=== PATIENT | female | born 1980 | race Caucasian/White ===

== ENCOUNTER 2018-07-10 10:55 | Day surgery (SDC) | payer BC, OTHER ==
[~2018-07-10] VITALS: Ht 160 cm; Wt 74.8 kg
[2018-07-10] VITALS (11 sets, daily range): BP systolic 102–119; BP diastolic 58–75; PULSE 70–92; RESP 15–23; Ht 160 cm; Wt 74.8 kg
[~2018-07-10 10:55] MED LIST: LIDOCAINE 2% (SDV) 5 ML INJ ONE
--- NOTE | 2018-07-10 13:17 | PREAC ---
Date/Time of Note Date/Time of Note DATE: 07/10/18 TIME: 13:15 Anesthesia Eval and Record Evaluation Time Pre-Procedure Interview DATE: 07/10/18 TIME: 13:15 Age 38 Sex female NPO: 8 hrs Preoperative diagnosis scalp mass times 4 Planned procedure excision of scalp mass x 4 Past Medical History Past Medical History: None Surgery & Anesthesia Issues No known issue Meds Anticoagulation: No Beta Kin within 24 hr: No Reason Beta Kin not given: Pt. not on B-Kin No Active Prescriptions or Reported Meds Meds reviewed: Yes Allergies Coded Allergies: No Known Allergy (Unverified , 07/10/18) Allergies Reviewed: Yes Labs/Studies Labs Reviewed: Reviewed by anesthesiologist test: Negative Pre-procedure Exam Last vitals Vital Signs Date Temp Pulse Resp B/P (MAP) Pulse Ox O2 O2 Flow FiO2 Time Delivery Rate 07/10/18 98.6 77 16 113/71 99 Room Air 11:07 (85) Airway: Adequate mouth opening, Adequate thyromental dist Mallampati: Mallampati I Teeth: Normal Lung: Normal Heart: Normal ASA Physical Status ASA physical status: 1 Emergency: None Planned Anesthetic General/MAC: MAC Planned Pain Management Parenteral pain med Pre-operative Attestations Prior to commencing anesthesia and surgery, the patient was re-evaluated, there was verification of: *The patient's identity *The results of appropriate recent lab work and preoperative vital signs *The above evaluation not changing prior to induction *Anesthetic plan, risk benefits, alternative and complications discussed with patient/family; questions answered; patient/family understands, accepts and wishes to proceed. AINSLEY YBARRA Jul 10, 2018 13:17
--- NOTE | 2018-07-10 13:28 | HPN ---
Date/Time of Note Date/Time of Note DATE: 07/10/18 TIME: 13:28 Interval H&P Admission Note Pt. seen H&P reviewed: No system changes ANDREW BENJAMIN Jul 10, 2018 13:28
[2018-07-10] MEDS ORDERED: PROPOFOL 100 ML ONE (13:33)
[2018-07-10] MEDS ORDERED: FENTAnyl 50 MCG/ML VIAL ONE (13:36)
[2018-07-10] MEDS ORDERED: CEFAZOLIN 1 GM INJ ONE (13:48)
[2018-07-10] MEDS ORDERED: BUPIVACAINE 0.25%/EPI (SDV) 30 ML INJ ONE (14:02)
[2018-07-10] MEDS ORDERED: LIDOCAINE 1% (MPF) 30 ML INJ ONE (14:03)
[2018-07-10] MEDS ORDERED: POVIDONE IODINE 10% 28.4 GM OINT ONE (14:07)
--- NOTE | 2018-07-10 14:35 | PAC ---
Date/Time of Note Date/Time of Note DATE: 07/10/18 TIME: 14:35 Post-Anesthesia Notes Post-Anesthesia Note Last documented vital signs Vital Signs Date Temp Pulse Resp B/P (MAP) Pulse Ox O2 O2 Flow FiO2 Time Delivery Rate 07/10/18 98.6 77 16 113/71 99 Room Air 1435 (85) Activity: WNL Respiratory function: WNL Cardiovascular function: WNL Mental status: Baseline Pain reasonably controlled: Yes Hydration appropriate: Yes Nausea/Vomiting absent: Yes AINSLEY YBARRA Jul 10, 2018 14:35
--- NOTE | 2018-07-10 14:45 | OPR ---
Date/Time of Note Date/Time of Note DATE: 07/10/18 TIME: 14:37 Operative Report Procedure Date: Jul 10, 2018 Preoperative Diagnosis Sebaceous cysts of the scalp x4 Postoperative Diagnosis Same Operation/Procedure Performed Excision of sebaceous cyst of the scalp 1.5 cm right parietal Excision of sebaceous cyst of the scalp 1 cm right temporal region Excision of sebaceous cyst of the scalp with 1.5 cm right frontal region Excision of sebaceous cyst of the scalp right occipital region 1 cm Surgeon see signature line Compliance Intern None Anesthesia Type: MAC Estimated Blood Loss: minimal Transfusion none Specimen Sebaceous cysts x4 Grafts/Implants none Tubes/Drains None Complications none Pt Condition Post Procedure: stable Disposition: PACU Indications This patient presented to the office complaining of pain and discomfort areas of her scalp on the right side where she has multiple sebaceous cysts that have been causing her pain due to stretching of her skin in the area and with any kind of activity that involves her head. She requested that they be surgically excised for symptomatic relief. Prior to the procedure I explained the risk of potential hair loss in the areas of excision. I also explained the risks of new or recurrent cysts occurring. After risks and benefits were explained and informed consent was obtained and she was taken to the operating room. Procedure Description Patient was placed in right decubitus position. The areas of the scalp that contained lesions as noted above under description of procedure performed or shaved locally to expose the skin with the use of the clippers and then prepped with Betadine solution. The patient's head was draped in a sterile manner. A timeout was conducted. Using a 15 blade dermis of the scalp was excised until I saw the glistening capsule of the sebaceous cyst. Using the hemostat clamp a plane was created between the dermis and the sebaceous cyst and thereafter the sebaceous cyst was enucleated intact and sent off the field. This maneuver was done a total of four times: Once in the parietal area measuring 1.5 cm in terms of excision size and cyst, once in the temporal region on the right measuring 1 cm, once in the frontal scalp region just toward the right of the midline measu ring 1.5 cm in size of incision and cyst, and once in the occipital region measuring 1 cm in size of incision and cyst. The entire cyst wall was excised and sent off in every circumstance. Use of cautery was minimized in order to avoid burning hair follicles. In every case after the cyst was enucleated the wound bed was irrigated with normal saline solution and thereafter interrupted 3-0 chromic sutures were placed to close the skin of the scalp. With each closure the sutures achieved hemostasis at the incision site. The incisions were then cleansed with saline and dried off and thereafter covered with Betadine ointment. Patient tolerated the procedure well and was dispositioned to recovery suite in stable condition. All instrument sponge and needle counts were correct at the end of the procedure. There were no complications. ANDREW BENJAMIN Jul 10, 2018 14:44
[2018-07-10] MEDS ORDERED: OXYCODONE/ACETAMINOPHEN (5/325) TAB PO PRN ×2 (15:00)
[2018-07-10] MEDS ORDERED: DIPHENHYDRAMINE 50 MG INJ IV PRN (15:00)
[2018-07-10] MEDS ORDERED: ONDANSETRON 4 MG INJ IV PRN (15:00)
[2018-07-10] MEDS ORDERED: EPHEDrine SULFATE 50 MG/5 ML SYG IV PRN (15:00)
[2018-07-10] MEDS ORDERED: FENTAnyl 50 MCG/ML VIAL IV PRN ×3 (15:00)
[2018-07-10] MEDS ORDERED: hydrALAzine 20 MG INJ IV PRN (15:00)
[2018-07-10] MEDS ORDERED: MEPERIDINE 25 MG INJ IV PRN (15:00)
[2018-07-10] MEDS ORDERED: LABETALOL HCL 20MG INJ IV PRN (15:00)
== END 2018-07-10 16:02 | disposition home or self-care (01) ==
LOC: SDS 10:55
PROVIDERS: ATTEND Surgery Surgical Critical Care
DX: R22.0 Localized swelling, mass and lump, head (principal); L72.11 Pilar cyst
CPT/HCPCS: 11426; 88304; J0690; J2175; J2405; J3010; Z7512; Z7610